=== PATIENT | male | born 1985 | race American Indian/Alaskan Native ===

== ENCOUNTER 2017-12-21 14:17 | Emergency (ER) | payer SELFPAY ==
[2017-12-21] MEDS ORDERED: DELTASONE PO ONE (15:10)
--- NOTE | 2017-12-21 15:14 | Emergency Department Report ---
HPI - General Chief Complaint: Dyspnea/Respdistress Time Seen by Provider: 12/21/17 15:08 - HPI HPI: Patient reports that he thinks is getting over cold head and not felt well for several days. Pt Told he was getting ready for work and felt short of breath so he called EMS. States he has pain when he takes a deep breath. Reports history of bronchitis. Pain at present 0-10. Denies any nausea or vomiting. Denies any history of blood clots or family history of blood clots. Denies any clotting disorder. Last travel 3 months ago to [place] via airplane. No recent history of cancer, Keiper therapy or surgery. No recent convalescent. Patient said this has been ongoing and send over a week that started with a cold and got better but then got worse today. Denies fever but reports feeling hot and cold. Positive coughing, positive nasal congestion ED Past Medical Hx - Past Medical History Previous Medical History?: Yes Additional medical history: Bronchitis - Surgical History Past Surgical History?: No - Family History Family history: hypertension - Social History Smoking Status: Never Smoker Substance Use Type: None - Medications Home Medications: Home Medications Medication Instructions Recorded Confirmed Last Taken Type ALBUTEROL Inhaler [ProAir HFA 2 puff IH QID PRN #1 inhalation 12/21/17 Unknown Rx Inhaler] Azithromycin [Zithromax Z-AMAYA] 250 mg PO DAILY 5 Days #6 tab 12/21/17 Unknown Rx Cetirizine HCl [ZyrTEC] 10 mg PO QDAY 14 Days #14 capsule 12/21/17 Unknown Rx Fluticasone [Flonase] 1 spray NS QDAY 14 Days #1 bottle 12/21/17 Unknown Rx guaiFENesin/CODEINE [Robitussin AC] 10 ml PO QHS PRN 5 Days #50 12/21/17 Unknown Rx oral.liqd methylPREDNISolone [Medrol Dose 4 mg PO QAM 6 Days #1 pack 12/21/17 Unknown Rx Amaya] ED Review of Systems ROS: Stated complaint: SHORTNESS OF BREATH Other details as noted in HPI Comment: All other systems reviewed and negative Constitutional: no symptoms reported Eyes: denies: eye pain, eye discharge ENT: congestion. denies: ear pain, throat pain Respiratory: no symptoms reported Cardiovascular: other (pain with inspiration). denies: chest pain, palpitations , dyspnea on exertion, edema, syncope, paroxysmal nocturnal dyspnea Gastrointestinal: denies: abdominal pain, nausea, vomiting, diarrhea, constipation, hematemesis, melena, hematochezia Genitourinary: denies: urgency, dysuria, frequency, hematuria, discharge Musculoskeletal: denies: back pain, joint swelling, arthralgia, myalgia Skin: denies: rash Neurological: denies: headache, weakness, numbness, paresthesias, confusion, abnormal gait, vertigo Physical Exam - Physical Exam Vital Signs: Vital Signs 12/21/17 14:25 Temperature 98.4 F Pulse Rate 70 Respiratory 20 Rate Blood Pressure 122/76 [Right] O2 Sat by Pulse 100 Oximetry General: This is a 32-year-old male well-nourished well-developed in no acute distress Physical Exam: Head: Normocephalic atraumatic Ears:BIateral TM congested without erythema and loss of bony landmarks. Les EAC with normal exam. No mastoid bone tenderness. Mouth: Moist, no pharyngeal erythema or exudate . No tonsillar erythema or exudate. UVULA midline and oral airways patent. No peritonsillar abscess Neck: Nontender to palpate, supple, normal range of motion. No adenopathy. No c- spine tenderness. Nose: Bilateral nasal mucosa congested with clear drainage. Maxillary and frontal sinuses tender to palpate. Eyes: Bilateral Sclerae and conjunctiva without injection. Bilateral pupils equal and reactive to light. Bilateral lids are normal. Normal accommodation.BEOMI Lungs: Scattered wheezes in the upper lung perez. No use of accessory muscles. Normal work of breathing and no chest wall tenderness Extremity: No clubbing, cyanosis or edema. +2 pulses all extremities. CV: S1, S2. Regular rate and rhythm negative murmur. Capillary refill is less than 3 seconds Skin: Clean dry and intact, no rashes or lesions Psych: Normal mood and behavior ED Course Vital Signs 12/21/17 14:25 Temperature 98.4 F Pulse Rate 70 Respiratory 20 Rate Blood Pressure 122/76 [Right] O2 Sat by Pulse 100 Oximetry - Reevaluation(s) Reevaluation #1: 12/21/17 15:14 Patient is stable, Deltasone, DuoNeb and and d-dimer pending. Reevaluation #2: 12/21/17 17:15 Patient felt better after DuoNeb, Deltasone treatment. ED Medical Decision Making - Radiology Data Radiology results: report reviewed Chest x-ray revealed bronchitis without pneumonia - Medical Decision Making ED course: Patient here reports difficulty breathing and into the ambulance the hospital. He was given the results of the milligram by mouth and DuoNeb 1 treatment in emergency room which relieved this mild wheezing. PERC rule suggests patient does not need any diagnostic studies due to low risk for PE but suggests d-dimer which was normal Chest x-ray reveal bronchitis without pneumonia. Patient has been having symptoms for over 1 week therefore he will be discharged home on azithromycin, Zyrtec, Flonase, Z-Amaya, albuterol and guaifenesin with codeine cough medicine to follow up at [facility] in 2-3 days. Critical care attestation.: If time is entered above; I have spent that time in minutes in the direct care of this critically ill patient, excluding procedure time. ED Disposition Clinical Impression: Cough in adult patient Acute bronchitis Qualifiers: Bronchitis organism: unspecified organism Qualified Code(s): J20.9 - Acute bronchitis, unspecified Sinusitis Qualifiers: Sinusitis location: unspecified location Chronicity: acute Recurrence: non- recurrent Qualified Code(s): J01.90 - Acute sinusitis, unspecified Disposition: DC- TO HOME OR SELFCARE Is pt being admited?: No Does the pt Need Aspirin: No Condition: Stable Instructions: Acute Bronchitis (ED), Sinusitis (ED), Acute Cough (ED) Additional Instructions: Please increase her fluid intake Flush nostrils with saline nasal spray take antibiotic and other medication as prescribed Please do not drive or operate heavy machinery while taking cough medicine as this medication can cause drowsiness F/U with primary care physician as instructed Prescriptions: guaiFENesin/CODEINE [Robitussin AC] 10 ml PO QHS PRN 5 Days #50 oral.liqd PRN Reason: cough ALBUTEROL Inhaler [ProAir HFA Inhaler] 2 puff IH QID PRN #1 inhalation PRN Reason: cough and wheezing Azithromycin [Zithromax Z-AMAYA] 250 mg PO DAILY 5 Days #6 tab Cetirizine HCl [ZyrTEC] 10 mg PO QDAY 14 Days #14 capsule Fluticasone [Flonase] 1 spray NS QDAY 14 Days #1 bottle methylPREDNISolone [Medrol Dose Amaya] 4 mg PO QAM 6 Days #1 pack Referrals: [facility] [Outside] - 2-3 Days Forms: Work/School Release Form(ED)
--- NOTE | 2017-12-21 15:58 | XRay Report ---
FINAL REPORT PROCEDURE: XR CHEST ROUTINE 2V TECHNIQUE: PA lateral chest HISTORY: cp/cough/sob COMPARISON: No prior studies are available for comparison. FINDINGS: Heart is not enlarged. Mild central peribronchial cuffing could reflect central bronchitis. No airspace infiltrate or effusion seen. IMPRESSION: Suspect mild acute bronchitis. No pneumonia seen.
[2017-12-21] MEDS ORDERED: DUONEB *Not for PRN Use IH ONE (16:26)
[2017-12-21 17:53] VITALS: BP 120/86
[2017-12-21] MEDS ORDERED: DUONEB *Not for PRN Use IH SCH (20:00)
== END 2017-12-21 17:52 | disposition home or self-care (01) ==
LOC: ED 14:17
DX: J20.9 Acute bronchitis, unspecified (principal); J32.0 Chronic maxillary sinusitis; J32.1 Chronic frontal sinusitis
CPT/HCPCS: 36415; 71046; 85379; 94640; 99284; J7512

== ENCOUNTER 2018-04-08 06:50 | Emergency (ER) | payer SELFPAY ==
[2018-04-08 07:17] VITALS: BP 104/61
--- NOTE | 2018-04-08 08:41 | Emergency Department Report ---
Abscess Boil HPI - HPI Chief Complaint: Skin/Abscess/Foreign Body Stated Complaint: BOIL ON MY BUTT Time Seen by Provider: 04/08/18 07:29 Duration: 5 Days Location: Other (right buttock area) Severity: Mild History: Yes Pain, No Fever, No Purulent Drainage, No Numbness, No Foreign Body , No Previous History, No Insect Bite HPI: This is a 32-year-old male nontoxic, well nourished in appearance, no acute signs of distress presents to the ED with c/o of right buttock abscess 5 days. Patient denies any pus, drainage, fever, chills, nausea, vomiting, chest pain, short of breath. Patient denies any allergies or significant past medical history. Home Medications: Previous Rx's Medication Instructions Recorded Last Taken Type ALBUTEROL Inhaler [ProAir HFA 2 puff IH QID PRN #1 inhalation 12/21/17 Unknown Rx Inhaler] Azithromycin [Zithromax Z-AMAYA] 250 mg PO DAILY 5 Days #6 tab 12/21/17 Unknown Rx Cetirizine HCl [ZyrTEC] 10 mg PO QDAY 14 Days #14 capsule 12/21/17 Unknown Rx Fluticasone [Flonase] 1 spray NS QDAY 14 Days #1 bottle 12/21/17 Unknown Rx guaiFENesin/CODEINE [Robitussin AC] 10 ml PO QHS PRN 5 Days #50 12/21/17 Unknown Rx oral.liqd methylPREDNISolone [Medrol Dose 4 mg PO QAM 6 Days #1 pack 12/21/17 Unknown Rx Amaya] Ibuprofen [Motrin] 600 mg PO Q8H PRN #30 tablet 04/08/18 Unknown Rx Sulfamethoxazole/Trimethoprim 1 each PO BID #14 tablet 04/08/18 Unknown Rx [Bactrim DS TAB] traMADol [Ultram] 50 mg PO Q6HR PRN #14 tablet 04/08/18 Unknown Rx Allergies/Adverse Reactions: Allergies Allergy/AdvReac Type Severity Reaction Status Date / Time shellfish derived Allergy Unknown Shortness Verified 12/21/17 14:29 of Breath ED Review of Systems ROS: Stated complaint: BOIL ON MY BUTT Other details as noted in HPI Constitutional: denies: chills, fever Eyes: denies: eye pain, eye discharge, vision change ENT: denies: ear pain, throat pain Respiratory: denies: cough, shortness of breath, wheezing Cardiovascular: denies: chest pain, palpitations Endocrine: no symptoms reported Gastrointestinal: denies: abdominal pain, nausea, diarrhea Genitourinary: denies: urgency, dysuria Musculoskeletal: denies: back pain, joint swelling, arthralgia Skin: denies: rash, lesions Neurological: denies: headache, weakness, paresthesias Psychiatric: denies: anxiety, depression Hematological/Lymphatic: denies: easy bleeding, easy bruising ED Past Medical Hx - Past Medical History Previous Medical History?: Yes Additional medical history: Bronchitis - Surgical History Past Surgical History?: No - Social History Smoking Status: Current Every Day Smoker Substance Use Type: Alcohol - Medications Home Medications: Home Medications Medication Instructions Recorded Confirmed Last Taken Type ALBUTEROL Inhaler [ProAir HFA 2 puff IH QID PRN #1 inhalation 12/21/17 Unknown Rx Inhaler] Azithromycin [Zithromax Z-AMAYA] 250 mg PO DAILY 5 Days #6 tab 12/21/17 Unknown Rx Cetirizine HCl [ZyrTEC] 10 mg PO QDAY 14 Days #14 capsule 12/21/17 Unknown Rx Fluticasone [Flonase] 1 spray NS QDAY 14 Days #1 bottle 12/21/17 Unknown Rx guaiFENesin/CODEINE [Robitussin AC] 10 ml PO QHS PRN 5 Days #50 12/21/17 Unknown Rx oral.liqd methylPREDNISolone [Medrol Dose 4 mg PO QAM 6 Days #1 pack 12/21/17 Unknown Rx Amaya] Ibuprofen [Motrin] 600 mg PO Q8H PRN #30 tablet 04/08/18 Unknown Rx Sulfamethoxazole/Trimethoprim 1 each PO BID #14 tablet 04/08/18 Unknown Rx [Bactrim DS TAB] traMADol [Ultram] 50 mg PO Q6HR PRN #14 tablet 04/08/18 Unknown Rx ED Abscess Boil Physical Exam - Exam General: Vital signs noted. No distress. Alert and acting appropriately. GENERAL: The patient is a well-developed, well-nourished in no apparent distress. Patient is alert and acting appropriately for age. Alert and oriented 3, no apparent distress, normal gait, atraumatic. HEENT: Head is normocephalic and atraumatic. PERRL, Extraocular muscles are intact. Pupils are equal, round, and reactive to light and accommodation. Nares appeared normal. Mouth is well hydrated and without lesions. Mucous membranes are moist. Posterior pharynx clear of any exudate or lesions. Mouth is well hydrated and without lesions. Tonsils not erythematous or swollen. Uvula midline. Tongue elevated. Mucous members are moist. Posterior pharynx clear, no exudate or lesions. Patent airways. NECK: Supple. No carotid bruits. No lymphadenopathy or thyromegaly.nontender. No meningitic signs are noted. LUNGS: Clear to auscultation. Non labor breathing. No intercostal retractions. Symmetrical with respiration, no wheezing, no rales, or crackles. HEART: Regular rate and rhythm without murmur, rubs or gallops. No reproducible. S1, S2 present, regular rate and rhythm without murmur, no rubs, no gallops. ABDOMEN: Soft, nontender, and nondistended. Positive bowel sounds. No hepatosplenomegaly was noted. No guarding or rebound tenderness, negative epigastric bruit. Negative psoas sign, negative holcomb sign, negative McBurneys sign EXTREMITIES: Without any cyanosis, clubbing, rash, lesions or edema. Peripheral pulses intact. Capillary refill less than 2 seconds. Full range of motion bilaterally. NEUROLOGIC: Cranial nerves II through XII are grossly intact. Alert and oriented x 3. Normal gait. Symmetrical strength and sensation. Reflexes 2+ throughout. Cerebellar testing normal. GCS score of 15. PSYCHIATRIC: Normal affect with no suicidal or homicidal ideations. Front/Back of Body, Lg (Color): 1 - 2 cm abscess Size: 2 cm Exam: Yes Tenderness, Yes Fluctuance, Yes Normal Neurologic Exam, Yes Normal Circulation, No Surrounding Cellulites/Erythema, No Lymphangitis, No Crepitation , No Heart Murmur I & D Note - I & D Note I & D Note: Under sterile field, I used Betadine to cleanse the area. I then used 1% lidocaine plain with 25-gauge 5/8 needle to inject area for anesthetic purposes. Total volume injected 3 mL. I then used an 11 blade to make a 1 cm incision. About 2 mL's of purulent drainage has been noted. I then used a hemostat to break the abscess formation. I then used sterile 0.9% normal saline flush to flush the wound with total volume of 40 mL used. I then put a 1 /4 iodoform packing to the incision. A sterile 4 x 4 with tape has been applied as dressing. Bleeding is under control. Patient tolerated the procedure well with no signs of distress noted. ED Course Vital Signs 04/08/18 07:14 Temperature 98 F Pulse Rate 100 H Respiratory 20 Rate Blood Pressure 104/61 O2 Sat by Pulse 95 Oximetry - Reevaluation(s) Reevaluation #1: 04/08/18 08:39 Patient is speaking in full sentences with no signs of distress noted. Critical care attestation.: If time is entered above; I have spent that time in minutes in the direct care of this critically ill patient, excluding procedure time. ED Medical Decision Making - Medical Decision Making This is a 32-year-old buttock male that presents with left axillary abscess. Patient is stable and was examined by me. This is incision and drainage and has been performed and patient tolerated well. A sterile dressing has been applied. Patient was educated on proper wound care. Patient is discharged with Bactrim and Ultram and was instructed not to operate any machinery while taking Ultram due to drowsiness. Patient was instructed to return in 2 days for packing removal. Patient was instructed to refer to Follow-up with a primary care doctor in 3-5 days or if symptoms worsen and continue return to emergency room as soon as possible. At time of discharge, the patient does not seem toxic or ill in appearance. No acute signs of distress noted. Patient agrees to discharge treatment plan of care. No further questions noted by the patient. ED Disposition Clinical Impression: Abscess, Encounter for incision and drainage procedure Disposition: - TO HOME OR SELFCARE Is pt being admited?: No Does the pt Need Aspirin: No Condition: Stable Instructions: Abscess Incision and Drainage (ED), Abscess (ED), Tramadol (By mouth), Sulfamethoxazole/Trimethoprim (By mouth) Additional Instructions: Follow-up with a primary care doctor in 3-5 days or if symptoms worsen and continue return to emergency room as soon as possible. Return in 2 days for packing removal and reassessment of the abscess. Prescriptions: Ibuprofen [Motrin] 600 mg PO Q8H PRN #30 tablet PRN Reason: Pain Sulfamethoxazole/Trimethoprim [Bactrim DS TAB] 1 each PO BID #14 tablet traMADol [Ultram] 50 mg PO Q6HR PRN #14 tablet PRN Reason: Pain Referrals: PRIMARY CAREMD [Primary Care Provider] - 3-5 Days LUDY HALE MD [Staff Physician] - 3-5 Days [facility] [place] [facility] [place] - 3-5 Days [facility] [Outside] - 3-5 Days Forms: Work/School Release Form(ED)
== END 2018-04-08 09:11 | disposition home or self-care (01) ==
LOC: ED 06:50
DX: L02.31 Cutaneous abscess of buttock (principal); F17.200 Nicotine dependence, unspecified, uncomplicated; Z91.013 Allergy to seafood